=== PATIENT | female | born 1965 ===

== ENCOUNTER → 2021-10-29 12:49 | Outpatient (CLI) | payer BC, SELFPAY ==
--- NOTE | ~2021-10-29 | MM_ITS ---
EXAMINATION: MM screening tommy BI w poli HISTORY: Screening mammogram TECHNIQUE: Craniocaudal and mediolateral oblique 3-D tomosynthesis images were obtained and synthetic 2-D images were generated. CAD analysis was submitted and interpreted. COMPARISON: No prior mammogram is available for comparison at this institution. BREAST PARENCHYMAL COMPOSITION: There are scattered areas of fibroglandular density. The peak FINDINGS: There is no evidence of suspicious mass, calcification, or architectural distortion to sugg est malignancy in either breast. IMPRESSION: 1. No mammographic evidence of malignancy. 2. Recommend routine screening mammography in one year. BI-RADS Category 1: Negative Reviewed, dictated and finalized at location C.
== END ==
DX: Z12.31 Encounter for screening mammogram for malignant neoplasm of breast (principal)
CPT/HCPCS: 77063; 77067

== ENCOUNTER → 2022-10-06 14:47 | Outpatient (CLI) | payer BC, SELFPAY ==
--- NOTE | ~2022-10-06 | XR_ITS ---
EXAM: XR_[id number]_CR DATE: 10/06/2022 15:23 HISTORY: Chronic neck pain . COMPARISON: None available. FINDINGS: Severely limited views of the cervical spine are provided. Likely C2-3 vertebral body and facet fusion. Exaggerated cervical lordosis. Cervical scoliosis. Possible posterior arch fusion anoma lies as well as congenital anomalies. IMPRESSION: Severely limited cervical spine radiographs. Consider MRI or CT of the cervical spine for more definitive evaluation. Reviewed, dictated and finalized at location K.
--- NOTE | ~2022-10-06 | XR_ITS ---
EXAM: XR shoulder RT min 2V DATE: 10/06/2022 15:23 HISTORY: Chronic R shoulder pain . COMPARISON: None available. FINDINGS: Normal mineralization. No fracture or dislocation. No lytic or blastic lesion. Moderate AC joint degenerative change. Amorphous calcification in the rotator cuff. No erosion or periosteal darlin nge. Soft tissues within normal limits. Osseous exostosis along the posterior aspect of the scapula. IMPRESSION: Moderate AC joint osteoarthritis. Calcific rotator cuff tendinitis. Posterior scapular os teochondroma. Reviewed, dictated and finalized at location K. IMPRESSION: Moderate AC joint osteoarthritis. Calcific rotator cuff tendinitis. Posterior scapular osteochondroma.
== END ==
DX: M25.511 Pain in right shoulder (principal); G89.29 Other chronic pain; Q76.1 Klippel-Feil syndrome; M19.011 Primary osteoarthritis, right shoulder; M75.101 Unspecified rotator cuff tear or rupture of right shoulder, not specified as traumatic; D16.01 Benign neoplasm of scapula and long bones of right upper limb
CPT/HCPCS: 72040; 73030